=== PATIENT | female | born 2000 | race Caucasian/White ===

== ENCOUNTER 2021-03-02 01:37 | Emergency (ER) | payer OTHER ==
[~2021-03-02 01:37] MED LIST: ACETAMINOPHEN325 MG PO; BENTYL10 MG PO; IBUPROFEN800 MG PO; IRON325 M1 PO; ONDANSETRON ODT4 MG SL; PRENATAL FORMU1 EACH PO; ZOFRAN4 MG PO
== END 2021-03-02 08:27 | disposition home or self-care (01) ==
LOC: FER 01:37
DX: J06.9 Acute upper respiratory infection, unspecified (principal); J30.2 Other seasonal allergic rhinitis; Z20.822 Contact with and (suspected) exposure to COVID-19
CPT/HCPCS: 71046; U0002

== ENCOUNTER 2021-06-05 23:05 | Emergency (ER) | payer OTHER ==
[2021-06-06 00:16] LABS: BASOPHIL 0.2 % (0-2); EOSINOPHIL 0.6 % (0-5); HCT 38.9 % (37.0-47.0); HGB 13.4 g/dl (12.5-16.0); LYMPHOCYTE 11.9 % (15-48); MCHC 34.4 g/dL (32.0-36.0); MCV 84.2 fL (78.0-100.0); MONOCYTE 7.3 % (0-12); MPV 10.7 fL (6.0-9.5); NEUTROPHIL 79.7 % (41-80); NRBC 0; PLT 282 K/uL (150-400); RBC 4.62 M/uL (4.20-5.40); RDW 12.4 % (11.5-14.0); WBC 10.8 K/uL (4.0-10.5)
[2021-06-06 00:31] LABS: ALBUMIN 3.6 g/dL (3.4-5.0); BILIRUBIN - TOTAL 0.5 mg/dL (0.2-1.0); BUN/CREAT RATIO (CALC) 23.5 RATIO; CREATININE 0.68 mg/dL (0.51-0.95); GLOBULIN (CALCULATION) 4.2 g/dL; POTASSIUM 3.8 mmol/L (3.5-5.1); TOTAL PROTEIN 7.8 g/dL (6.4-8.2)
[2021-06-06 02:54] LABS: BILIRUBIN NEGATIVE (NEGATIVE); BLOOD 1+ Ery/uL (NEGATIVE); CLARITY CLEAR (CLEAR); COLOR YELLOW (YELLOW); GLUCOSE (U) NORMAL (NORMAL); LEUKOCYTES TRACE Leu/uL (NEGATIVE); NITRITE NEGATIVE (NEGATIVE); PROTEIN NEGATIVE (NEGATIVE); SPECIFIC GRAVITY >=1.030 (1.001-1.030); UROBILINOGEN 0.2 mg/dL (0.2-1.0)
[2021-06-06 03:11] LABS: BACTERIA TRACE
[2021-06-06 03:12] LABS: AMORPHOUS URATES CRYSTALS MODERATE; MUCOUS MODERATE; SQUAMOUS EPITHELIAL CELLS RARE
[2021-06-06] MEDS ORDERED: DIFLUCAN150 MG PO (03:52)
[2021-06-06] MEDS ORDERED: AUGMENTIN 875-1 EACH PO (03:52)
[2021-06-06] MEDS ORDERED: AZITHROMYCIN250 MG PO (03:52)
[2021-06-06] MEDS ORDERED: ONDANSETRON ODT4 MG PO (03:52)
== END 2021-06-06 06:16 | disposition home or self-care (01) ==
LOC: FER 23:05
PROVIDERS: Emergency Medicine
DX: J18.9 Pneumonia, unspecified organism (principal); N39.0 Urinary tract infection, site not specified; Z20.822 Contact with and (suspected) exposure to COVID-19; Z98.890 Other specified postprocedural states
CPT/HCPCS: 36415; 71275; 80053; 81001; 84484; 85025; 87076; 87088; 93005; J0456; J0692; J2405; J7030; J7050; Q9967; U0002

== ENCOUNTER 2022-05-12 22:25 | Emergency (ER) | payer OTHER ==
[~2022-05-12 22:25] MED LIST changes: +AUGMENTIN 875-1 EACH PO; +AZITHROMYCIN250 MG PO; +DIFLUCAN150 MG PO; +ONDANSETRON ODT4 MG PO
[2022-05-12 23:28] LABS: BASOPHIL 0.5 % (0-2); EOSINOPHIL 0.2 % (0-5); HCT 36.8 % (37.0-47.0); HGB 13.1 g/dl (12.5-16.0); MCH 29.5 pg (25.0-31.0); MCHC 35.6 g/dL (32.0-36.0); MCV 82.9 fL (78.0-100.0); MONOCYTE 6.6 % (0-12); MPV 10.1 fL (6.0-9.5); NEUTROPHIL 70.5 % (41-80); NRBC 0; PLT 240 K/uL (150-400); RBC 4.44 M/uL (4.20-5.40); RDW 12.7 % (11.5-14.0); WBC 4.2 K/uL (4.0-10.5)
[2022-05-12 23:46] LABS: LACTIC ACID 0.5 mmol/L (0.4-1.9)
[2022-05-13 00:10] LABS: ALBUMIN 3.5 g/dL (3.4-5.0); ALKALINE PHOSHATASE 98 U/L (46-116); ALT 38 U/L (14-59); AST 33 U/L (15-37); BILIRUBIN - TOTAL 0.5 mg/dL (0.2-1.0); BUN 16 mg/dL (7-18); BUN/CREAT RATIO (CALC) 21.9 RATIO; CHLORIDE 104 mmol/L (98-107); CO2 (BICARBONATE) 22 mmol/L (21-32); CREATININE 0.73 mg/dL (0.51-0.95); GLOBULIN (CALCULATION) 3.5 g/dL; GLUCOSE 114 mg/dL (74-106)
[2022-05-13 00:12] LABS: CORONAVIRUS 2019 SARS-COV-2 NEGATIVE (NEGATIVE); INFLUENZA A NAA NEGATIVE (NEGATIVE)
[2022-05-13 00:27] LABS: BILIRUBIN NEGATIVE (NEGATIVE); BLOOD 1+ Ery/uL (NEGATIVE); CLARITY CLEAR (CLEAR); COLOR YELLOW (YELLOW); GLUCOSE (U) NORMAL (NORMAL); LEUKOCYTES 1+ Leu/uL (NEGATIVE); NITRITE NEGATIVE (NEGATIVE); PROTEIN NEGATIVE (NEGATIVE); SPECIFIC GRAVITY >=1.030 (1.001-1.030); UROBILINOGEN 0.2 mg/dL (0.2-1.0)
[2022-05-13 00:36] LABS: HCG (URINE) SCREEN NEGATIVE (NEGATIVE)
[2022-05-13 00:48] LABS: SPERM PRESENT
[2022-05-13] MEDS ORDERED: PREDNISONE 20MG20 MG PO (01:26)
[2022-05-13] MEDS ORDERED: PHENERGAN25 M1 PO (01:26)
== END 2022-05-13 01:52 | disposition home or self-care (01) ==
LOC: FER 22:25
PROVIDERS: Physician Assistant
DX: B34.9 Viral infection, unspecified (principal); R00.0 Tachycardia, unspecified; Z20.822 Contact with and (suspected) exposure to COVID-19
CPT/HCPCS: 36415; 71045; 71275; 80053; 81001; 83605; 84484; 84703; 85025; 85379; 87040; 93005; 96372; J1100; J1885; J7030; Q9967; U0002